=== PATIENT | male | born 1955 | race American Indian/Alaskan Native ===

== ENCOUNTER 2018-11-09 17:11 | Emergency (ER) | payer OTHER ==
--- NOTE | 2018-11-09 17:28 | Emergency Department Report ---
ED CPR HPI - General Chief Complaint: Cardiac Arrest/CPR Stated Complaint: CARDIAC Time Seen by Provider: 11/09/18 17:23 Source: EMS Mode of arrival: Stretcher - History of Present Illness Initial Comments: 63-year-old male with history of CVA, hypertension, presents to ED via EMS in cardiac arrest. EMS states they were called out for unresponsive person. Patient was at home eating, when he became unresponsive. Upon EMS arrival patient had agonal breathing. They began to bag the patient and at which time he then lost pulses. Patient was initially in PEA, then went into V. fib. Patient was defibrillated twice, given amiodarone 300 mg and 150 mg. Patient was given epinephrine 4, Narcan. Patient regained a pulse briefly, epinephrine drip was initiated at that time. Patient then did cancel to become bradycardic into the 30s and 1 mg of atropine was given. Patient lost pulses again just prior to ED arrival. Upon arrival, CPR in progress. Patient in EMS care for approx 35-40 minutes. MD Complaint: stopped breathing Place: home Bystander CPR Performed: No Number of Shocks Delivered: 2 Initial Findings in the Field: agonal ROSC in the Field: Yes Associated Symptoms: other (unknown) Treatments Prior to Arrival: other airway device (Santos tube), chest compressions, defribrillated shocks # (2), epinephrine mgs # (4), atropine mgs # (1), amiodarone - Related Data Home Medications Medication Instructions Recorded Confirmed Last Taken Unobtainable 11/09/18 11/09/18 Unknown Allergies Allergy/AdvReac Type Severity Reaction Status Date / Time No Known Allergies Allergy Unverified 11/09/18 17:50 ED Review of Systems ROS: Stated complaint: CARDIAC Other details as noted in HPI Comment: Unobtainable due to pts medical conditions ED Past Medical Hx - Medications Home Medications: Home Medications Medication Instructions Recorded Confirmed Last Taken Type Unobtainable 11/09/18 11/09/18 Unknown History ED Physical Exam - General Limitations: Physical Limitation - Head Head exam: Present: atraumatic, normocephalic - Eye Pupils: Present: other (fixed and dilated) - ENT ENT exam: Present: other (Santos tube in place) - Neck Neck exam: Present: normal inspection - Respiratory Respiratory exam: Present: rales - Cardiovascular Cardiovascular Exam: Present: other (no palpable pulse present) - GI/Abdominal GI/Abdominal exam: Present: soft, mass (left lateral abdomen). Absent: distended - Extremities Exam Extremities exam: Present: normal inspection - Neurological Exam Neurological exam: Present: other (GCS= 3) - Skin Skin exam: Present: warm, dry, intact, normal color ED Medical Decision Making - Medical Decision Making 63-year-old male presents to ED in cardiac arrest. Pt in EMS care for approx 35- 40 min prior to ED arrival. Code was continued according to ACLS guidelines. Pt in asystole while in ER. Unfortunately, no ROSC. Time of 17:21. Please see nurse's note for details. Family notified. - Differential Diagnosis arrythmia, PE, STEMI Critical care attestation.: If time is entered above; I have spent that time in minutes in the direct care of this critically ill patient, excluding procedure time. ED Disposition Clinical Impression: Cardiac arrest Disposition: DC-20 Is pt being admited?: No Condition: Stable Referrals: SHANNAN JACOBSON MD [Primary Care Provider] - 3-5 Days
[2018-11-09] MEDS ORDERED: ADRENALIN ONE (19:18)
== END 2018-11-09 20:30 ==
LOC: ED 17:11
DX: I46.9 Cardiac arrest, cause unspecified (principal)
CPT/HCPCS: 82962; 92950; 99285; J0171